=== PATIENT | female | born 1990 | race Caucasian/White ===

== ENCOUNTER 2022-10-13 08:09 | Outpatient (CLI) | payer OTHER, SELFPAY ==
--- NOTE | 2022-10-13 08:15 | CRLHL7_ITS ---
For Patients: As a result of the Century Cures Act, medical imaging exams and procedure reports are released immediately into your electronic medical record. You may view this report before your referring provider. If you have questions, please contact your health care provider. INDICATION: Evaluate anatomy. COMPARISON: None. TECHNIQUE: Real time matt scale imaging of the fetus was performed. FINDINGS: Sonographic imaging demonstrates a single living intrauterine gestation. Fetus demonstrates a regular cardiac rate of 147 beats per minute. Fetus has a vertex orientation. The placenta lies anteriorly without evidence of placenta previa. Amniotic fluid volume appears normal. Single deepest vertical pocket: 4.2 cm. The cervix is closed and measures 4.0 cm in length. The composite ultrasound gestational age is calculated at 20 weeks 5 days with an estimated sonographic due date of February 25, 2023. The estimated weight is 375 grams which lies at the 55th percentile. The following biometric measurements were obtained: Biparietal diameter: 4.8 cm/20 weeks 4 days 52% Head circumference: 17.9 cm/20 weeks 2 days 32% Abdominal circumference: 15.7 cm/20 weeks 6 days 54% Femur length: 3.4 cm/20 weeks 5 days 46% The HC/AC ratio measures: 1.14 range (1.06-1.25) On anatomic survey, there is a normal appearance of the cerebral ventricles, cisterna magna and cerebellum. Bilateral small choroid plexus cysts. In isolation these are of doubtful significance. The nose, lips, and facial profile appear normal. The cervical, thoracic and lumbar spine are well visualized and appear normal. There is a normal four-chamber heart view and the left and right ventricular outflow tracts appear normal. diaphragm, stomach, kidneys and bladder appear normal. There is a normal three-vessel cord and cord insertion site. The four extremities appear normal. IMPRESSION: Normal OB ultrasound exam with concordance of clinical and sonographic dating. No intrinsic abnormalities noted on anatomic survey with the exception of small bilateral choroid plexus cysts each of which measure 6 x 7 mm. Dictated by William Benjamin MD @ 10/13/2022 9:47:28 AM (Electronically Signed)
== END 2022-10-13 08:10 | disposition home or self-care (01) ==
LOC: US 08:09
PROVIDERS: PCP Registered Nurse; Visit Provider Registered Nurse
DX: Z34.92 Encounter for supervision of normal pregnancy, unspecified, second trimester (principal); Z3A.20 20 weeks gestation of pregnancy
CPT/HCPCS: 76805

== ENCOUNTER 2022-12-13 15:05 | Outpatient (CLI) | payer OTHER, SELFPAY | END 2022-12-13 15:06 | disposition home or self-care (01) | LOC: NFLDREF 12-16 10:22 | PROVIDERS: PCP Registered Nurse; Referring Provider Registered Nurse; Visit Provider Advanced Practice Midwife | DX: Z34.90 Encounter for supervision of normal pregnancy, unspecified, unspecified trimester (principal) | CPT/HCPCS: 86592; 86787 ==

== ENCOUNTER 2023-02-01 09:22 | Outpatient (CLI) | payer OTHER, SELFPAY ==
[2023-02-02 12:15] LABS: Strep B DNA Probe NEGATIVE (Negative)
[2023-02-02 12:20] LABS: Strep B Pen/Amox Allergy No
== END 2023-02-01 09:23 | disposition home or self-care (01) ==
LOC: FRMREF 09:22
PROVIDERS: Visit Provider Advanced Practice Midwife
DX: Z34.90 Encounter for supervision of normal pregnancy, unspecified, unspecified trimester (principal)
CPT/HCPCS: 87081; 87653

== ENCOUNTER 2023-02-01 12:53 | Outpatient (CLI) | payer OTHER, SELFPAY ==
--- NOTE | 2023-02-01 13:00 | CRLHL7_ITS ---
For Patients: As a result of the Cures Act, medical imaging exams and procedure reports are released immediately into your electronic medical record. You may view this report before your referring provider. If you have questions, please contact your health care provider. INDICATION: size less than dates COMPARISON: 10.13.22 TECHNIQUE: Real time matt scale imaging of the fetus was performed. FINDINGS: Sonographic imaging demonstrates a single living intrauterine gestation. Fetus demonstrates a regular cardiac rate of 142 beats per minute. Fetus has a vertex position. The placenta lies anteriorly. Amniotic fluid volume appears normal and there is a single deepest vertical pocket: 3.4 cm. The estimated weight is 2728gm which lies at the 32nd %. On the prior OB ultrasound exam dated 10.13.22 the estimated weight was at the 55th%. BPD 58th percentile. HC 17th percentile. AC 60th percentile. FL less than 3rd percentile. The HC/AC ratio measures 0.99 range (0.93-1.09). IMPRESSION: Sonographic gestational age 35 weeks 4 days and sonographic due date of 03/04/2023. Sonographic age is 6 days behind the clinical age. Estimated weight 32nd percentile. Abdominal circumference 60th percentile. Dictated by Cordell Álvarez MD @ 02/01/2023 1:48:49 PM (Electronically Signed)
== END 2023-02-01 12:54 | disposition home or self-care (01) ==
LOC: US 12:54
PROVIDERS: Visit Provider Registered Nurse
DX: O36.5930 Maternal care for other known or suspected poor fetal growth, third trimester, not applicable or unspecified (principal); Z3A.35 35 weeks gestation of pregnancy
CPT/HCPCS: 76816

== ENCOUNTER 2023-02-28 09:46 | Inpatient (IN) | payer OTHER, SELFPAY ==
[2023-02-28] VITALS (12 sets, daily range): BP systolic 100–126; BP diastolic 56–73; PULSE 81–113; RESP 16; TEMP 36.6–37.3; O2SAT 95–96
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
--- NOTE | 2023-02-28 13:35 | W.PM.OBVAGDE ---
OB Procedure Vag Delivery Mother Details Mother Details: The patient is a 32 year-old, 4, Para 2, admitted on 02/28/23 at 40.5 Days gestation for active labor. : 4 Para: 3 Weeks Gestation: 40.5 Admission Date: 02/28/23 Additional Details Amniotic Membrane Status: SROM (with ) Amniotic Membrane Rupture Date: 02/28/23 Amniotic Membrane Rupture Time: 13:04 Amniotic Membrane Fluid Description: Clear Analgesia/Anesthesia Type: None Waterbirth: No Pitcoin: No Intrapartal Events: None Labor Onset: 07:00 Complete: 12:43 Pushin:47 Heart: heart tones during second stage were intermittently auscultated 135-140's, no audible declerations noted. Delivery Details Delivery Date: 02/28/23 Delivery Time: 13:04 Route of delivery: Infant Gender: Male Viability: Alive; Heart Rate Present Position at Delivery: OA Delivery Details: ??Harriett labored with the support of Bao, coped well with contractions and changed positions frequently. Her membranes remained intact until the baby was and she delivered the baby with the next contraction. ? ? Spontaneous vaginal delivery at 1304 of?a viable?male .??Delivered in vertex OA position.??Shoulders delivered easily.?There was a hand by the face and a nuchal cord was looped once around the neck which slowed the delivery of the body. The cord was not reduced, baby delivered through. Spontaneous cry noted.??Infant placed on maternal abdomen.??Cord?was clamped and cut after a 5+ minute delay.??Nose and mouth were bulb suctioned.? Shoulder dystocia: no? Nuchal cord: yes times one? Meconium stained?fluid: no? Water : no? ? ? 7 at 1 minute and 9 at 5 minutes.? ? Placenta delivered spontaneously with trailing membranes at 1311 with a?3 vessel?cord.?? Bleeding controlled with fundal massage, she did not receive Pitocin per her request.?After approximately 30 minutes she was passing some clots and had some continued trickling, discussed with Harriett and recommended IM Pitocin which she agreed to have. We discussed the trailing membranes and signs to watch for after delivery as well. ? Mother and were stable after delivery.? ? Lacerations:?none ? Bleeding?post delivery?was: minimal. ?The fundus was firm to palpation.? Blood loss: 150?mL.? Blood loss measurement type: QBL? ? ? Sponge,?lap?and needles counts are correct.? Mother and infant were stable after delivery.? 1 Minute Interval Total Score: 7 5 Minute Interval Total Score: 9 Additional Details Shoulder Dystocia: No Placenta Delivery Time: 13:11 Placental Delivery Description: Spontaneous (trailing membranes) Procedure Done: Global Laceration: None Blood Loss Measurement Type: QBL Bakri Used: No Sponge/Need Count Correct: Yes Cord Vessel Description: 3 Vessels, Nuchal Cord and Delivered through Event Summary Status: Mother and were stable after delivery. Disposition: floor
[2023-02-28] MEDS: OXYTOCIN 10 UNIT/ML INJ IM (13:47)
[2023-03-01 04:10] VITALS: BP 106/71; PULSE 99; RESP 16; TEMP 36.9; O2SAT 96
[2023-03-01 07:30] VITALS: BP 99/66; PULSE 91; RESP 16; TEMP 36.7; O2SAT 96
--- NOTE | 2023-03-01 08:01 | P.DS_ITS ---
DS: Providers Provider Time Seen by Provider: 08:01 Date Seen: 03/01/23 Date of admission: 02/28/23 09:46 Primary care physician: Not a Local Provider Admitting Clinician: Delio Schulz CNM Attending Physician on discharge: Delio Schulz CNM Date of Discharge: 03/01/23 DS: Diagnosis Discharge Diagnosis (1) examination following vaginal delivery: Status: Acute (2) Lactating mother: Status: Acute (3) NVD (normal vaginal delivery): Status: Acute Exam Narrative: Exam Narrative: VSS, afebrile GENERAL APPEARANCE: ?normal affect, alert, no distress MOOD: ?appropriate HEENT: normocephalic, neck supple, full ROM CHEST: ?Symmetrical chest wall movement. ?Normal respiratory effort. ?Clear to auscultation HEART: ?regular rate and rhythm ABDOMEN: ?soft, non-tender. Uterine fundus is firm, 3 below Umbilicus, Midline and is appropriate for the stage of recovery. ?Bowel sounds present. PERINEUM: ?mild edema of the perineum, there are no lacerations EXTREMITIES: ?normal and no edema Const: Vital Signs, click to edit/add: Vital Signs - 24 hr 02/28/23 13:13 02/28/23 13:13 02/28/23 13:28 Temperature 98 F Pulse Rate 96 93 Pulse Rate [Pulse Oximeter] Respiratory Rate Blood Pressure 124/72 125/68 Blood Pressure [Le ft Arm] Blood Pressure [Ri ght Arm] Pulse Oximetry Oxygen Delivery Me thod 02/28/23 13:28 02/28/23 13:43 02/28/23 13:43 Temperature 98.6 F 98.3 F Pulse Rate 88 Pulse Rate [Pulse Oximeter] Respiratory Rate Blood Pressure 112/60 Blood Pressure [Le ft Arm] Blood Pressure [Ri ght Arm] Pulse Oximetry Oxygen Delivery Me thod 02/28/23 13:59 02/28/23 13:59 02/28/23 14:13 Temperature 98.2 F Pulse Rate 96 94 Pulse Rate [Pulse Oximeter] Respiratory Rate Blood Pressure 126/62 120/67 Blood Pressure [Le ft Arm] Blood Pressure [Ri ght Arm] Pulse Oximetry Oxygen Delivery Me thod 02/28/23 14:13 02/28/23 14:28 02/28/23 14:28 Temperature 98.4 F 98.2 F Pulse Rate 82 Pulse Rate [Pulse Oximeter] Respiratory Rate Blood Pressure 112/56 L Blood Pressure [Le ft Arm] Blood Pressure [Ri ght Arm] Pulse Oximetry Oxygen Delivery Me thod 02/28/23 14:43 02/28/23 14:58 02/28/23 14:58 Temperature 98.3 F Pulse Rate 87 112 H Pulse Rate [Pulse Oximeter] Respiratory Rate Blood Pressure 114/63 118/69 Blood Pressure [Le ft Arm] Blood Pressure [Ri ght Arm] Pulse Oximetry Oxygen Delivery Me thod 02/28/23 15:13 02/28/23 15:13 02/28/23 20:30 Temperature 98.1 F 99.1 F Pulse Rate 113 H Pulse Rate [Pulse Oximeter] 102 H Respiratory Rate 16 Blood Pressure 116/73 Blood Pressure [Le ft Arm] Blood Pressure [Ri ght Arm] 107/70 Pulse Oximetry 95 Oxygen Delivery Me thod Room Air 02/28/23 22:55 02/28/23 23:30 03/01/23 04:10 Temperature 99.2 F 98.1 F 98.5 F Pulse Rate Pulse Rate [Pulse Oximeter] 81 81 99 Respiratory Rate 16 16 16 Blood Pressure Blood Pressure [Le ft Arm] Blood Pressure [Ri ght Arm] 100/63 106/71 Pulse Oximetry 96 96 96 Oxygen Delivery Me thod Room Air Room Air Room Air 03/01/23 07:30 Temperature 98.1 F Pulse Rate Pulse Rate [Pulse Oximeter] 91 Respiratory Rate 16 Blood Pressure Blood Pressure [Le ft Arm] 99/66 Blood Pressure [Ri ght Arm] Pulse Oximetry 96 Oxygen Delivery Tx thod Room Air Documenting provider has reviewed patient's vital signs: yes OB - DS: Summary Hospital Course Hospital Course: Harriett is a 32 y.o. G 4 P 3 who was admitted to L & D for labor. ?She had an uncomplicated NVD The patient feels well. ?The pain is well controlled with current medications. ?She has no new complaints. ?She is breast feeding and reports things are going well.? the patient has done well.? Vitals have been stable.? She has remained afebrile.? Has a good appetite, is tolerating a general diet. ?She is voiding without difficulty.? She is passing gas and has had a bowel movement.? She is ambulating and denies any dizziness.? Has Small amount of rubra lochia. She is planning condoms for prevention. Problems: none plan: Discharge home with baby. Follow up in 2 weeks and 6 weeks. , may follow up with if needed Peripartum Data Infant delivery method: Vaginal Laceration description: None complications: none Gender: Female Discharge Plan: Home Status at Discharge Functional status at discharge: independent ambulation Overall status at discharge: patient is progressing back to baseline Time Spent with Patient Time attestation: Total time spent providing and/or coordinating discharge services: Time spent: Less than 30 minutes Discharge Plan Discharge Disposition: Home, Self-Care Date of Admission: 02/28/23 09:46 Attending Provider on Discharge: Sana Casiano Primary Care Provider: Provider,Not a Local Condition: Stable Anticipated Discharge Date/Time: 03/01/23 15:00 Discharge Medications: New docusate sodium 100 mg Capsule 100 mg PO BID PRNQty: 100 0RF ibuprofen 600 mg Tablet 600 mg PO Q6H PRNQty: 60 0RF Continued DHA 200 mg capsule 200 mg PO DAILY Discharge Orders: Discharge Order (Routine); Ordered 03/01/23 Ordered By: Sana Casiano Patient Education: OB Over the Counter Medication Information, OB Vaginal/Breast Feeding Additional Instructions: Follow up in 2 weeks and 6 weeks. Discharge Diet: Regular Follow Up Appointments: Provider,Not a Local [Primary Care Provider] - Forms: Purveyour Info Instructions
[2023-03-01] MEDS: DOCUSATE SODIUM 100 MG CAPSULE PO (09:16)
[2023-03-01 13:10] VITALS: BP 116/72; PULSE 83; RESP 16; TEMP 36.8; O2SAT 97
== END 2023-03-01 14:25 | disposition home or self-care (01) | DRG 807 ==
LOC: OB OUT 09:46 → OB 09:46
PROVIDERS: Admitting Provider Advanced Practice Midwife; Visit Provider Advanced Practice Midwife
DX: O69.81X0 Labor and delivery complicated by cord around neck, without compression, not applicable or unspecified (principal); Z37.0 Single live birth; Z3A.40 40 weeks gestation of pregnancy
CPT/HCPCS: A9270; J2590